=== PATIENT | female | born 1960 | race Caucasian/White ===

== ENCOUNTER 2023-08-05 07:14 | Outpatient (CLI) | payer BC, SELFPAY | END 2023-08-05 07:15 | disposition home or self-care (01) | LOC: INJ CL 07:14 | PROVIDERS: PCP Family Medicine; Visit Provider Family Medicine | DX: M54.16 Radiculopathy, lumbar region (principal); M51.36 Other intervertebral disc degeneration, lumbar region | CPT/HCPCS: 62323; J0702; Q9966 ==

== ENCOUNTER 2023-11-11 08:05 | Outpatient (CLI) | payer BC, SELFPAY ==
--- NOTE | 2023-11-11 09:17 | W.ANESCHARGE ---
Anesthesia Charges Start Date/Time Anesthesia Start Date: 11/11/23 Anesthesia Start Time: 08:46 Stop Date/Time Anesthesia Stop Date: 11/11/23 Anesthesia Stop Time: 09:11
--- NOTE | 2023-11-11 09:27 | W.ANESCHARGE ---
Anesthesia Charges Start Date/Time Anesthesia Start Date: 11/11/23 Anesthesia Start Time: 08:46 Stop Date/Time Anesthesia Stop Date: 11/11/23 Anesthesia Stop Time: 09:11
== END 2023-11-11 08:06 | disposition home or self-care (01) ==
LOC: OP CLINIC 08:05
PROVIDERS: PCP Family Medicine; Visit Provider Internal Medicine Gastroenterology
DX: Z12.11 Encounter for screening for malignant neoplasm of colon (principal); D12.2 Benign neoplasm of ascending colon; D12.5 Benign neoplasm of sigmoid colon
CPT/HCPCS: 00811; 45385; 88305; J2704

== ENCOUNTER 2024-01-31 06:55 | Outpatient (CLI) | payer BC, SELFPAY | END 2024-01-31 06:56 | disposition home or self-care (01) | LOC: INJ CL 06:56 | PROVIDERS: PCP Family Medicine; Visit Provider Family Medicine | DX: M54.16 Radiculopathy, lumbar region (principal); M51.369 Other intervertebral disc degeneration, lumbar region without mention of lumbar back pain or lower extremity pain | CPT/HCPCS: 62323; J0702; Q9966 ==

== ENCOUNTER 2024-03-29 06:22 | Day surgery (SDC) | payer BC, SELFPAY ==
[2024-03-29] VITALS (7 sets, daily range): BP systolic 137–151; BP diastolic 76–89; PULSE 78–97; RESP 18; TEMP 37.2; O2SAT 92–98; BMI 27.5
[2024-03-29] MEDS: LACTATED RINGERS 1000 ML 1,000 ML 100 ML IV (06:05)
[2024-03-29] MEDS: ACETAMINOPHEN 500 MG TABLET 1000 MG PO (06:20)
[2024-03-29] MEDS: CELECOXIB 200 MG CAPSULE PO (06:20)
[2024-03-29] MEDS: OXYCODONE (CR) 10 MG TAB.ER.12H PO (06:20)
--- OUTSIDE RECORDS SUMMARY | 2024-03-29 06:26 | XMS_ITS | Continuity of Care Document ---
Author Name NwHIN [email or web address] Address Unknown Organization Unknown Address Unknown Procedures FILTER APPLIED:Only known Procedures with Onset Date within the last 5 years Procedure Date Procedure Provider Additiona l Information Status [facility] PFT BRONCHOSPASM EVAL-LAB (14865) Completed [facility] POC HEMOGLOBIN QUANT TRANSCUTANEOUS (56794) Completed [facility] PFT C0 MEMBRANE DIFFUSE CAPACITY (17053) Complet ed [facility] PFT PLETHYSMOGRAP (49386) Completed Encounters FILTER APPLIED:Only known Encounters with Admission Date within the last 5 years Encounter Location Admission Discharge Billing Code Sole Cementer Matilde sorensen Outpatient [id number] JAYE FERREIRA Outpatient [id number] CESAR NUÑEZ
--- OUTSIDE RECORDS SUMMARY | 2024-03-29 06:27 | XMS_ITS | Clinical Summary ---
Author Organization [employer] [facility] [facility] Address [place], [place] [address] Care Team Providers [facility] Director Name Role Phone SanderchrisNoreen Irma WALLIS Primary Care Provider [phone] Allergies Active Allergy Reactions Criticality Noted Date Comments Penicillins *Unknown - Childhood Rxn 11/25/2006 childhood Medications Fish Oil-DHA-EPA (FISH OIL) 1,200-144-216 mg Cap Take by mouth once daily. 0 012 Active multivitamin (MVI) tablet Take 1 tablet by mouth once daily. 0 012 Active EPINEPHrine (EPIPEN) 0.3 mg/0.3 mL auto-injectorIndi cations:Allergic reaction, sequela Inject 0.3 mg (1 pen) intramuscular each time if needed for Allergic Reaction. 1 Each 3 022 Active fluticasone (50 mcg per actuation) nasal solution (FLONASE)Indicati ons:Rhinitis, unspecified type USE 2 SPRAYS IN EACH NOSTRIL ONCE DAILY 48 g 3 023 Active LORazepam (ATIVAN) 0.5 mg tabIndications:An xiety Take 30min prior to MRI. 1 Tablet 024 Active albuterol HFA (PRO-AIR; VENTOLIN; PROVENTIL) 90 mcg/actuation inhalerIndication s:Mild persistent asthma without complication Inhale 2 Puffs by mouth every 6 hours if needed for Shortness of Breath 1st choice or Wheezing 1st choice. 18 g 3 024 Active amLODIPine (NORVASC) 10 mg tabletIndications :HTN (hypertension) Take 1 Tablet (10 mg) by mouth once daily. 90 Tablet 3 024 Active famotidine (PEPCID) 20 mg tabletIndications :Laryngopharyngea l reflux disease Take 1 Tablet (20 mg) by mouth at bedtime. 90 Tablet 3 024 Active fluticasone propion-salmetero L (Wixela Inhub) 250-50 mcg/Dose diskus inhalerIndication s:Mild persistent asthma without complication USE 1 INHALATION ORALLY TWICE DAILY 180 Each 3 024 Active montelukast (SINGULAIR) 10 mg tabletIndications :Mild persistent asthma without complication Take 1 Tablet (10 mg) by mouth at bedtime. 90 Tablet 3 024 Active pantoprazole (PROTONIX) 40 mg delayed-release tabletIndications :Laryngopharyngea l reflux disease Take 1 Tablet (40 mg) by mouth once daily before a meal. 90 Tablet 3 024 Active estradioL (ESTRACE) 0.5 mg tabletIndications :Hormone replacement therapy (HRT) TAKE 1/2 TABLET ONCE DAILY 45 Tablet 3 024 Active sertraline (ZOLOFT) 100 mg tabletIndications :Depression, recurrent (HC) Take 2 Tablets (200 mg) by mouth once daily. 180 Tablet 3 024 Active celecoxib (CELEBREX) 200 mg capsuleIndication s:Osteoarthritis of first carpometacarpal (CMC) joint of one hand Take 1 Capsule (200 mg) by mouth two times daily with meals. 60 Capsule 2 024 Active medroxyPROGESTERo ne (PROVERA) 2.5 mg tabletIndications :Hormone replacement therapy (HRT) TAKE 1 TABLET DAILY 90 Tablet 1 024 Active ipratropium (ATROVENT NASAL) 42 mcg (0.06 %) nasal sprayIndications: Post-nasal drainage USE 2 SPRAYS IN EACH NOSTRIL ONCE DAILY. MAY INCREASE TO 3 TIMES A DAY IF NEEDED 60 mL 1 024 Active levocetirizine (XYZAL) 5 mg tab tabletIndications :Post-nasal drainage TAKE 1 TABLET ONCE DAILY INTHE EVENING 90 Tablet 2 025 Active betamethasone dipropionate 0.05 % creamIndications: Rash APPLY TO AFFECTED RASH 1 TO2 TIMES A DAY UNTIL RESOLVED. NOT FOR USE MORE THAN 2 WEEKS REGULARLY. 120 g 1 025 Active gabapentin (NEURONTIN) 100 mg capsuleIndication s:Generalized neuropathy Take three tablets in the morning and three tablets at night 540 Capsule 2 Active estradioL (Estrace) 0.5 mg tablet Take by mouth once daily. Active thiamine (VITAMIN B1) 100 mg tablet Take by mouth once daily. Active Polyethylene Glycol 1000 powd Mix 1 Packet in liquid then take by mouth once daily. Active Vttmg-6-OYU-EPA-F john Oil (Fish OiL) 1,000 (120-180) mg cap Take 1 Capsule by mouth once daily. Active folic acid 1 mg tablet Take by mouth once daily. Active fluticasone furoate (Arnuity Ellipta) 50 mcg/actuation dsdv Active betamethasone dipropionate 0.05% (DIPROSONE 0.05% CREAM) 0.05 % creamIndications: Rash APPLY TO AFFECTED RASH 1 TO2 TIMES A DAY UNTIL RESOLVED. NOT FOR USE MORE THAN 2 WEEKS REGULARLY. 120 g 022 2023 Discontinued(R eorder (E-cancel not sent)) levocetirizine (XYZAL) 5 mg tab tabletIndications :Post-nasal drainage Take 1 Tablet (5 mg) by mouth once daily in the evening. 90 Tablet 2 024 2024 Discontinued ipratropium (ATROVENT NASAL) 42 mcg (0.06 %) nasal sprayIndications: Post-nasal drainage USE 2 SPRAYS IN EACH NOSTRIL ONCE DAILY. MAY INCREASE TO 3 TIMES A DAY IF NEEDED 60 mL 1 024 2023 Discontinued gabapentin (NEURONTIN) 100 mg capsuleIndication s:Generalized neuropathy Take three tablets in the morning and three tablets at night 810 Capsule 3 024 2024 Discontinued(* Availability/F ormulary change/Cost of medication) Active Problems Problem Noted Date Diagnosed Date Alcoholic liver damage 03/22/2024 Alcohol dependence, daily use 03/22/2024 Colon polyp 11/15/2023 Overview (11/15/2023): Colonoscopy 10/2023 large SSA, repeat in 3 years Pap smear for cervical cancer screening 08/11/19 Overview (08/11/2023): 07/2023 NIL/HPV negative. Plan: Routine Screening. Peripheral sensory neuropathy 11/09/2020 Overview (11/09/2020): Has seen neurology, thought alcohol contributing to symptoms and recommend decrease alcohol. See Neurology consult 10/2020 Vitamin B12 deficiency 04/08/2015 Herniation of intervertebral disc at C6-C7 level 03/25/2015 Laryngopharyngeal reflux disease 03/25/2015 HTN (hypertension) 12/18/2014 Mild persistent asthma without complication 09/2014 Urticaria 10/04/2012 CTS (carpal tunnel syndrome) 05/04/2012 Overview (05/04/2012): Right; improved with brace Lumbar facet arthropathy 03/31/2012 Hot flashes 03/25/2011 Laryngospasm 03/25/2011 Overview (03/27/2012): Still with intermittent problems. Allergic rhinitis, cause unspecified 03/02/2007 Resolved Problems Problem Noted Date Diagnosed Date Resolved Date Annual physical exam 07/27/2023 025 Routine general medical exam ination at a health care facility 01/17/2013 03/22/2024 Overview (01/17/2013): S/P colonoscopy at [place] 01/05/2013 colitis per patient. Tennis elbow 03/25/2011 03/30/2013 Lumbar radicular pain 08/07/20102012 Painful Lumbar Facet Arthropathy 06/22/2010 03/27/2012 Degeneration of lumbar or trey mbosacral intervertebral disc 12/26/2009 03/27/2012 Allergic reaction 12/18/2009 03/30/2013 Encounters Date Type Department Care Team Description 03/22/2024 7:30 AM ART CONSULTANT Office Visit [facility] [address] [place] [address] Vivek Hernandez MD Preoperative Exam ( surgery/[facility]/Dr. Miranda) 03/22/2024 Travel 03/21/[address] [address] Noreen Thomas DO Refill Request (gabapentin) 03/15/[address] [address] Noreen Thomas DO Refill Request (Betamethasone Dipropionate Augmented 0.05% aug oin ) 03/12/[address] [address] Noreen Thomas DO Refill Request (Levocetirizine) 03/07/[address] [address] Noreen Thomas DO Refill Request (Ipratropium) 02/14/[address] [address] Noreen Thomas DO Error-please disregard (error) 02/03/[address] [address] Salvatore Méndez MD Appointment Request (2 WEEK FOLLOW-UP) 02/03/[address] [address] Noreen Thomas DO Refill Request (gabapentin (NEURONTIN) 100 mg capsule) 01/31/2024 8:00 AM ART CONSULTANT Office Visit [facility] [address] [place] [address] Salvatore Méndez MD Procedure (L5-S1 ILESI) 01/30/2024 7:55 AM ART CONSULTANT Office Visit [address] [address] Noreen Thomas DO Occ Med 01/30/[address] [place] [address] Noreen Thomas DO Consult 01/30/2024 Travel 01/23/2024 Orders Only [facility] Scanner 1 scan: (1-Ord) [facility], XR LUMBAR SPINE, 01/23/2024 12/30/2023 Refill [facility] [address] [place] [address] Noreen Thomas DO Refill Request (Medroxyprogesterone) from Last 3 Months Immunizations Name Administration Dates Next Due COVID-19 vaccine (Moderna 100mcg/0.5mL) PF, MDV 06/26/2020,05/29/2020 COVID-19 vaccine (Pfizer-Bio NTech 30mcg/0.3mL) 12YO+ ANDERSON-SUCROSE PF, MDV 07/15/2021 Influenza A (H1N1), Inactiva piper (Age >=3 Years) 03/03/2009 Influenza Virus, Unspecified 11/30/2017,11/27/19 15 Influenza, IIV3 (Age >=3 years) 12/26/19 14,12/11/2012,12/26/2011,2010,03/12/2010 Influenza, IIV4 12/14/2019, 9,11/12/2016,2015 Influenza, Injectable, Mdck, Quadrivalent, W/preservative 12/28/2022,12/23/2021,12/24/2020 Pneumococcal Conj 20-valent (Prevnar 20) 02/18/2022 Td (Age >=7 Years) 07/15/2021,01/23/2004 Tdap 12/13/2023,03/25/2011 Zoster (Shingrix-RZV, recombinant) 09/21/2019, Family History Medical History Relation Name Comments Allergies Brother Chaitanya Hayfever Cancer Father Graeme oral Diabetes Father Graeme Allergies Mother Pat Asthma Mother Pat Osteoporosis Mother Pat Anesthesia Problem No Family History Blood Disease No Family History Cancer-breast No Family History Relation Name Status Comments Brother Chaitanya Alive Father Graeme Alive Mother Pat Alive Social History Tobacco Use Types Packs/Day Years Used Date Smoking Tobacco: Former Cigarettes 1.5 20 0 12/08/1983 - 12/08/2003 Smokeless Tobacco: Never Tobacco Cessation:Counseling Given: Not Answered Alcohol Use Standard Drinks/Week Comments Yes 21 (1 standard drink = 0.6 oz pu re alcohol) PHQ-2 Answer Date Recorded PHQ-2 TOTAL SCORE 4 07/27/2023 Social Connections Answer Date Recorded Do you often feel lonely or isolated from those around you? 0 04/26/2023 Alcohol Use Answer Date Recorded How often do you have a drink containing alcohol ? 4 07/27/2023 How many drinks containing a lcohol do you have on a typical day when you are drinking? 1 07/27/2023 How often do you have five or more drinks on one occasion? 4 07/27/2023 Financial Resource Strain Answer Date R ecorded Difficulty of Paying Living Expenses 3 04/26/2023 Difficulty of Paying Living Expenses Not on file 04/26/2023 Food Insecurity Answer Date Recorded Do you worry your food will run out before you are able to buy more? 1 04/26/2023 Transportation Needs Answer Date Record ed Does lack of transportation keep you from medica l appointments? 1 04/26/2023 Does lack of transportation keep you from work, meetings or getting things that you need? 1 04/26/2023 Housing Stability Answer Date Recorded What is your housing situation today? 1 04/26/2023 Utilities Answer Date Recorded Do you have trouble paying f or utilities (for example, heat, electricity, water, phone)? 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 Not on file Not on file Not on file Not on file Not on file Not on file Not on file Obstetrics History Para Term AB IAB SAB Ectopic Multiple Livin g Live Births 2 2 2 0 Date Outcome GA Total Labor Labor/2nd/3rd Weight Sex Type Anes PTL Margareth A1 A5 Name Clin SAB SAB Last Filed Vital Signs Vital Sign Reading Time Taken Comments Blood Pressure 138/80 03/22/2024 7:49 AM ART CONSULTANT Pulse 96 03/22/2024 7:34 AM ART CONSULTANT Temperature 37.3 C (99.1 F) 12/09/2023 10:00 AM CDT Respiratory Rate 18 09/13/2023 8:29 AM CDT Oxygen Saturation 97% 03/22/2024 7:34 AM ART CONSULTANT Inhaled Oxygen Concentration - - Weight 66.7 kg (147 lb 1 oz) 03/22/2024 7:34 AM ART CONSULTANT Height 156.6 cm (5' 1.65) 03/22/2024 7:34 AM CS T Body Mass Index 27.2 03/22/2024 7:34 AM ART CONSULTANT Plan of Treatment Health Maintenance Due Date Last Done Comments Low Dose CT (for lung CA) ag e 50-80 2012 RSV vaccine for adults or (1 - Risk 60-74 years 1-dose series) 2022 COVID-19 vaccine series (2023- season) 2023 07/15/2021, 06/26/2020, 05/29/2020 Influenza for age 50-64 11/13/2023 12/29/19 23, 12/23/2021, 12/24/2020, Additional history exists Mammogram for age 45-75 07/26/2024 07/27/19 24, 07/19/2022, 07/15/2021, Additional history exists Depression screening for age 12+ 07/28/2024 07/29/2023, 07/27/2023, 07/27/2023, Additional history exists BMI (ht and wt on same day) for age 18+ 03/22/2025 03/22/2024, 10/19/2023, 07/27/2023, Additional history exists Pap test for age 21-65 07/26/2026 , 07/27/2023, 04/18/2018, Additional history exists Colonoscopy through age 75 11/10/202611/10, 11/11/2023, 01/05/2013 (Completed outside of [facility]) Lipids for age 45-75 07/26/2028 07/27/2023, 07/19/2022, 07/15/2021, Additional history exists Tetanus booster 12/12/2033 12/13/2023, 05/0 06/2021, 03/25/2011, Additional history exists Zoster (shingles) series for age 50+ Completed 09/21/2019, 03/01/2019 Hepatitis C screening for ag e 18-79 Completed 08/07/2021, 11/28/2020, 04/20/2019 Pneumococcal series for age 50+ Completed 2 HIV for age 15-65 Completed 07/19/2022 Tdap Completed 12/13/2023, 03/25/2011 Procedures Procedure Name Priority Date/Time Associated Diagnosis Comments AMB EPIDURAL STEROID INJECTION Routine 01/31/2024 12:00 AM ART CONSULTANT Lumbar radiculopathy Spinal stenosis of lumbar region with neurogenic claudication Lumbar facet arthropathy SCAN-RADIOLOGY REPORT 01/23/2024 12:00 AM ART CONSULTANT COLONOSCOPY SCREENING Routine 11/11/2023 12:00 AM CDT Screening for colon cancer LIPID PANEL W REFLEX MEASURED LDL Routine 07/27/2023 9:32 AM CDT HTN (hypertension) HPV HIGH RISK Routine 07/27/2023 8:57 AM CDT Cervical cancer screening XR MAMMO BILAT SCREENING Routine 07/27/2023 7:08 AM CDT Visit for screening mammogram LC HIV-1/O/2, 4TH GENERATION Routine 07/19/2022 8:56 AM CDT Screening for HIV (human immunodeficiency virus) ANTI HCV Routine 08/07/2021 7:47 AM CDT Elevated liver enzymes from Last 3 Months or Most Recently Relevant to Health Maintenance Results * AMB EPIDURAL STEROID INJECTION (01/31/2024 12:00 AM ART CONSULTANT) us Salvatore Méndez MD NEUROLOGY ORD Final Resu lt * SCAN-RADIOLOGY REPORT (01/23/2024 12:00 AM ART CONSULTANT) Anatomical Region Laterality Modality Other us Scanner OTHER Final Result * COLONOSCOPY SCREENING [[id number]] (11/11/2023 12:00 AM CDT) Noreen Thomas DO GI PROCEDURE ORD Final Res ult * (ABNORMAL) LIPID PANEL W REFLEX MEASURED LDL (07/27/2023 9:32 AM CDT) CHOLESTEROL,TOTAL 143 100 - 199 mg/dL 07/27/2023 6:47 PM CDT [facility] Comment: Cholesterol, Total Reference Ranges Desirable <200 mg/dL Borderline 200-239 mg/dL High >=240 mg/dL TRIGLYCERIDES 231(H) <150 mg/dL 07/27/2023 6:47 PM CDT [facility] HDL CHOLESTEROL 51 >40 mg/dL 6:47 PM CDT [facility] NON-HDL CHOLESTEROL 92 <145 mg/dl 07/27/2023 6:47 PM CDT [facility] CHOL/HDL RATIO 2.80 <4.50 07/27/2023 6:47 PM CDT [facility] LDL CHOLESTEROL 46 <=130 mg/dL 07/27/2023 6:47 PM CDT [facility] VLDL CHOLESTEROL 46(H) <=30 mg/dL 07/27/2023 6:47 PM CDT [facility] PROVIDER ORDERED STATUS RANDOM 07/27/2023 6:47 PM CDT [facility] Blood BLOOD SPECIMEN / Unknown Venipuncture / Unknown 07/27/2023 9:32 AM CDT 07/27/2023 9:34 AM CDT Noreen Thomas DO CHEMISTRY Final Resu lt [facility] [address] [place] [address], * HPV HIGH RISK (07/27/2023 8:57 AM CDT) TYPE 16 Negative Negative 07/29/2023 11:45 AM CDT [facility] TYPE 18 Negative Negative 07/29/2023 11:45 AM CDT [facility] OTHER HIGH RISK TYPES Negative Negative 07/29/2023 11:45 AM CDT [facility] Other (Cervical) Non-Blood / Unknown 07/27/2023 8:57 AM CDT 07/27/2023 4:40 PM CDT Narrative [facility] - 07/29/2023 11:45 AM CDT HPV types 16, 18, 31, 33, 35, 39, 45, 51, 52, 56, 58, 59, 66 and 68 DNA were undetectable or below the pre-set threshold. Methodology: [employer] 4800 HPV Test us Noreen Thomas DO MICROBIOLOGY Final Resu lt [facility] [address] [place] [address], [place] * XR MAMMO BILAT SCREENING (07/27/2023 7:08 AM CDT) Anatomical Region Laterality Modality BREASTS, Breast Left, Breast Right Bilateral Mammography Impressions 07/27/2023 2:31 PM CDT There is no radiographic evidence for malignancy. Recommend annual mammograms. MAMMOGRAM ASSESSMENT: ACR 1 Negative PATIENTS: You will also receive a letter with your examination results in an easy to read format. If you have questions about your results, please contact your referring provider. Narrative 07/27/2023 2:31 PM CDT For Patients: As a result of the 21st Century Cures Act, medical imaging exams and procedure reports are released immediately into your electronic medical record. You may view this report before your referring provider. If you have questions, please contact your health care provider. XR MAMMO BILAT SCREENING [[id number]] CLINICAL HISTORY: This is an asymptomatic 63 y.o. patient. INDICATION FOR EXAM: Mammogram Screening. TECHNIQUE: CC & MLO views were obtained. This study was evaluated with the assistance of Computer-Aided Detection. COMPARISON FILM: Yes 07/19/22 [employer] [facility] 07/15/21 [facility] FINDINGS: The breasts have scattered areas of fibroglandular density. There are no dominant masses, suspicious micro calcifications or areas of architectural distortion. Noreen Thomas DO MAMMO Final Resu lt * LC HIV-1/O/2, 4TH GENERATION (07/19/2022 8:56 AM CDT) HIV Scr 4th Gen Non Reactive Non Reactive 07/21/2022 10:06 PM CDT [facility]) Comment: HIV Negative HIV-1/HIV-2 antibodies and HIV-1 p24 antigen were NOT detected. There is no laboratory evidence of HIV infection. Blood BLOOD SPECIMEN / Unknown Venipuncture / Unknown 07/19/2022 8:56 AM CDT 07/19/2022 8:57 AM CDT Narrative [facility] ([facility]) - 07/21/2022 10:06 PM CDT Performed at: [address] [place] [id number] Orthopedic Shoe Fitter: Florencio Phillips MD, Phone: [phone] [facility] DO LABORATORY Final Resu lt [facility] ([facility]) [address] [place] [id number], * ANTI HCV (08/07/2021 7:47 AM CDT) Pathologist [facility] HEPATITIS C ANTIBODY Non-React torres Non-React torres 08/07/2021 4:17 PM CDT [facility] Comment:Antibodies to HCV no t detected; does not exclude the possibility of exposure to HCV. Blood BLOOD SPECIMEN / Unknown Venipuncture / Unknown 08/07/2021 7:47 AM CDT 08/07/2021 7:47 AM CDT Noreen Thomas DO SEND OUTS Final Resu lt [facility] [address] [place] [address], [place] from Last 3 Months or Most Recently Relevant to Health Maintenance Insurance [employer] Care Teams Craft Center Director Relationship Specialty Start Date End Date Noreen [place] [address] [place] [address] PCP - General Family Practice 06/04/20
[2024-03-29] MEDS: SODIUM CHLORIDE 0.9 % (FLUSH) 10 ML SYRINGE IVF (07:16)
[2024-03-29] MEDS: fentaNYL 100 MCG/2 ML inj IVP (07:55)
[2024-03-29] MEDS: MIDAZOLAM HCL 1 MG/ML inj IVP (07:55)
--- NOTE | 2024-03-29 07:58 | SUR.PREOP ---
TIME?OUT:?0751 PT/RN/ROBB?VERIFICATION?OF?SURGICAL?SITE,?PROCEDURE,?AND?CONSENT OBTAINED?PRIOR?TO?INVASIVE?PROCEDURE.pt ghanshyam rn mary anne holm mda consent left hand
[2024-03-29] MEDS: CEFAZOLIN 2 GM INJ IVP (08:19)
--- NOTE | 2024-03-29 09:30 | P.NB_ITS ---
Nerve Block Nerve Block Time Seen by Provider: 07:55 Date Seen: 03/29/24 Type of block requested by surgeon for post-operative analgesia: axillary Side: left Time out performed: Yes Verification of patient name: Yes Verification of date of : Yes Site marking: site marked Name of person performing procedure: Ganga Continuous monitoring Was continuous monitoring of O2 sat, B/P, co founder and cto, recorded every 15 minutes?: Yes Procedure Checklist: sterile prep, needles and gloves Ultrasound guided. Images saved: Yes Medications given in 5ml increments after negative aspiration: Ropivicaine %: 0.5 mL: 15 Needle gauge: 22 and Lidocaine %: 2 mL: 1 Patient tolerated procedure well: Yes Additional comments: Needle noted adjacent to nerve Block Charges Block Charge (with Pro Fee): Brachial Plexus Use of Ultrasound Machine for Block: Yes- US Guidance/pain block
--- NOTE | 2024-03-29 09:31 | P.ANES_ITS ---
Anesthesia Charges Start Date/Time Anesthesia Start Date: 03/29/24 Anesthesia Start Time: 08:09 Stop Date/Time Anesthesia Stop Date: 03/29/24 Anesthesia Stop Time: 10:20 Coding CPT Codes CPT Codes: ANESTH LOWER ARM SURGERY - 77678 ([id number]) QK - MUD CAR WORKER 2-4 CNCRNT ANES PROC, QX - METHODS ANALYST SVC W/ MD MED DIRECTION, P2 - PATIENT W/MILD SYST DISEASE
--- NOTE | 2024-03-29 09:31 | W.ANESCHARGE ---
Anesthesia Charges Start Date/Time Anesthesia Start Date: 03/29/24 Anesthesia Start Time: 08:09 Stop Date/Time Anesthesia Stop Date: 03/29/24 Anesthesia Stop Time: 10:20 Coding CPT Codes CPT Codes: ANESTH LOWER ARM SURGERY - 46196 ([id number]) QK - DIRECTOR OF NUCLEAR MEDICINE 2-4 CNCRNT ANES PROC, QX - GRADE TEACHER SVC W/ MD MED DIRECTION, P2 - PATIENT W/MILD SYST DISEASE
--- NOTE | 2024-03-29 09:52 | PM.ORPRC ---
Procedure Note Date of procedure: 03/29/24 Procedure: PREOPERATIVE DIAGNOSIS: Left thumb CMC joint osteoarthritis POSTOPERATIVE DIAGNOSIS: Left thumb CMC joint osteoarthritis NAME OF OPERATION: Left thumb CMC arthroplasty (LRTI), EPB transfer SURGEON: Inderjit Wheatley MD TERMINOLOGIST: Jenny Perez PA-C ANESTHESIA: Axillary block plus monitored anesthesia care ESTIMATED BLOOD LOSS: 0 mL COMPLICATIONS: None SPECIMENS: None DRAINS: None PREOPERATIVE ANTIBIOTICS: Ancef 2 grams INDICATIONS: The patient is a 63-year-old with a history of left thumb CMC joint osteoarthritis. Despite appropriate nonoperative management, including activity modification, antiinflammatories, [id number] pain medication, bracing, occupational therapy, and injections they continue to have pain and disability. Operative intervention was offered. The risks, benefits and expected outcomes were discussed in detail. These included but were not limited to: Infection, bleeding, injury to blood vessel or nerve, venous thromboembolism. All questions were answered to their satisfaction. Use of an university administrative assistant was necessary for patient positioning, soft tissue retraction, wound closure and dressing and splint application. PROCEDURE: An axillary block was placed by anesthesia. The patient was placed supine on the operating room table. IV sedation was administered. The left upper extremity was prepped and draped in the usual sterile fashion. The limb was exsanguinated with the Kvng bandage. The pneumatic tourniquet was inflated to 250 mmHg. A longitudinal incision was made just dorsal to the 1st dorsal compartment at the base of the thumb. Subcutaneous dissection was taken with tenotomy scissors. Several small crossing veins were cauterized and divided. The base of the thumb metacarpal was exposed. The CMC joint capsule was incised longitudinally. Subperiosteal dissection of the trapezium was carried both dorsally and volarly. Likewise, the base of the thumb metacarpal was subperiosteally exposed. The radial sensory nerve was encountered and was carefully protected throughout the case. The trapezium was dissected free with the 15 blade and the [place] elevator. It was removed piecemeal. Attention was then turned to the FCR graft harvest. A transverse incision was made at the musculotendinous junction of the FCR in the volar forearm. Subcutaneous dissection was taken with tenotomy scissors to the tendon. The tendon was freed up from the muscle fibers and was divided transversely. We then pulled the tendon graft into the distal incision at the base of the thumb. We placed a 2-0 FiberWire suture in the deep capsule. A 2.8 mm socket was drilled on the radial side of the base of the index finger metacarpal. A loop of labral tape was placed in the socket and secured with a 3 mm x 8 mm BioComposite anchor. A guide pin was drilled through the dorsum of the base of the thumb metacarpal exiting at the volar peak of the base of thumb metacarpal. A 5 mm tunnel was drilled. The tendon passer was placed through the tunnel. We pulled the tendon graft and both limbs of the labral tape into the tunnel. We maximally tensioned the graft and then placed a 4.75 x 15 mm Arthrex BioComposite tenodesis screw just distal to the graft. The graft was then pulled proximally and was secured to the dorsal bone of the base of the metacarpal with 2-0 FiberWire suture x2. We then used our previously placed 2-0 FiberWire suture in the deep capsule and folded the graft back and forth over these sutures. The graft was placed in the depth of the wound and this FiberWire suture was tied over the top to secure it in position. Given the amount of hyperextension through the thumb MP joint we elected to transfer the extensor pollicis brevis tendon. It was therefore freed up and was divided just proximal to the MP joint. It was then secured to the periosteum of the thumb metacarpal, proximal to the MP joint with a 2-0 FiberWire. The wound was irrigated with normal saline. The capsule was closed with a 3-0 Vicryl in an interrupted [id number] fashion. Wounds were closed with 3-0 Vicryl and a 4-0 Monocryl. Glue was used to seal the skin. A dry dressing and short-arm thumb spica splint were applied, the tourniquet was released. Sponge and needle counts were correct x 2. The patient tolerated the procedure well. There were no apparent complications. They were carefully transferred to the hospital bed and taken to the postanesthesia care unit in satisfactory condition. PLAN: The patient will be discharged to home. They will work on ice and elevation of the hand. They will follow up in the office next week for wound check and three views of the thumb, out of the splint prior to being seen.
--- NOTE | 2024-03-29 10:21 | P.ANES_ITS ---
Anesthesia Charges Start Date/Time Anesthesia Start Date: 03/29/24 Anesthesia Start Time: 08:09 Stop Date/Time Anesthesia Stop Date: 03/29/24 Anesthesia Stop Time: 10:20 Coding CPT Codes CPT Codes: ANESTH LOWER ARM SURGERY - 39487 ([id number]) P3 - PATIENT W/SEVERE SYS DISEASE, QK - LAP POLISHER 2-4 CNCRNT ANES PROC, QX - BRAIN WAVE TECHNICIAN SVC W/ MD MED DIRECTION
--- NOTE | 2024-03-29 10:21 | W.ANESCHARGE ---
Anesthesia Charges Start Date/Time Anesthesia Start Date: 03/29/24 Anesthesia Start Time: 08:09 Stop Date/Time Anesthesia Stop Date: 03/29/24 Anesthesia Stop Time: 10:20 Coding CPT Codes CPT Codes: ANESTH LOWER ARM SURGERY - 30250 ([id number]) P3 - PATIENT W/SEVERE SYS DISEASE, QK - PLATE FITTER 2-4 CNCRNT ANES PROC, QX - CLIENT SERVICES ACCOUNT MANAGER SVC W/ MD MED DIRECTION
--- NOTE | 2024-03-29 11:27 | SUR.PHASEII ---
Patient tolerated ice water; she did not care for anything else to eat or drink. Patient verbalized readiness to be discharged and understanding of discharge instructions. Patient voided prior to discharge.
== END 2024-03-29 11:15 | disposition home or self-care (01) ==
LOC: OR 06:25
PROVIDERS: PCP Family Medicine; Visit Provider Orthopaedic Surgery
PROC: (CPT 25447; principal; 2024-03-29 07:45)
DX: M18.12 Unilateral primary osteoarthritis of first carpometacarpal joint, left hand (principal); G89.18 Other acute postprocedural pain
CPT/HCPCS: 25447; 26480; 01830; 64415; 76942; A9270; C1713; J0690; J1100; J2250; J2405; J2704; J2795; J3010; J7120

== ENCOUNTER 2024-07-30 11:00 | Outpatient (RCR) | payer BC, SELFPAY ==
--- NOTE | 2024-04-09 18:08 | OT.OPOE ---
OT Outpatient Ortho Eval OT Outpatient Ortho Eval* Start: 04/09/24 12:35 Freq: Status: Active Protocol: Document 04/09/24 14:35 LCN (Rec: 04/09/24 18:04 LCN [id number]) E-signed By Brooke Soto, OTR/L, CLT OT OP Ortho Eval Details Complexity Complexity Low Insurance Information Insurance Information Comments [facility] History/Precautions Current Condition/Medical Diagnosis Referring Provider Dr. Wheatley attending, PCP is Noreen Thomas Medical Diagnoses s/p L thumb arthroplasty LRTI 03/29/24. 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 Hernaited disc of c6-7. Trial of 2 cortisone injections in L CMC early, late fall of 2023, not helpful . penicillin allergy. Medical/Functional History Prior Level of Function/Mobility Pt lives alone on [address] [place] near [place], neighbor does snow [employer] and she does the yard with her large rider. Has 2 dogs ( lab, pitbull) indoor and outdoor cats. 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 Is going through a divorce and is trying to down size her belongs in her home of 30 yrs. 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 Ortho Subjective Subjective Subjective Yesi Whitney is an active, hardworking 63 y/o female who underwent a L CMC arthroplasty /CLTI ( with removal of trapezium and harvest of EPB tendon) on 03/29/24 and is having pain/pressure and edema since then. Still using oxycodone 5 mg tablets 3x/day between ibuprofen and tylenol. rates pn 6/10 as we start today, waiting for her next dose. Was issued thumb spica brace in Ortho 04/05/24 and has only been wearing it at night . Edema is distended light pink and neutrally warm, painful to shaina a compression glove. Pain Assessment Pain Pain Yes Pain Comments 5/10 steady pain in L thub and wrist, fingers feel heavy Range of Motion and Strength Wrist Range of Motion and Strength Wrist Range of Motion and Strength WR EX to 60 of 70 and WF to 55 of 80. Supination and pronation WNL EDEMA-- Distended skin, pitting edema pink flushed with neutral healing warmth, no red streaking. Wrist crease is 16.8 cm L and 16.2 R. TH p1 is 6.7 cm L and 6.3 R. Hand/Finger/Thumb Range of Motion and Strength Hand/Finger/Thumb Range of Motion and Pt makes 80% of full fist. Strength AAROM composite digit flexion L IF/MF/RF/SF is 2.2 / 2.0 / 1.8 / .7 cm ( where .5-1 cm is WNL) Hand Pinch/Lan Analyst Strength Hand Pinch/Lan Analyst Strength Hand Pinch/Lan Analyst Strength Left Hand,Right Hand Left Hand Lan Analyst Strength Position 1 in Elbow 0 Flexion (lbs) Right Hand Lan Analyst Strength Position 1 in Elbow 58 Flexion (lbs) Lateral Pinch Strength (lbs) 15 Three Point Pinch (lbs) 14 OT Problems Problems Problems Decreased Strength,Decreased Range of Motion,Pain,Sensory Sensitivity,Lifting,Gripping, Pinching Other Problems Opening Containers,Dressing, Fasteners Patient Potential Excellent Assessment Assessment Assessment Pt healing from L CMC arthroplasty LRTI on 03/29/24. Given Yesi's?difficulty with edema, pain, ROM and strength loss of L hand/thumb/wrist limiting daily tasks, and she would benefit from skilled OT to address these areas. Occupational Therapy Treatment Plan - OP Potential Rehabilitation Potential Excellent Set Goals Goals Set with Patient Yes Goals Goals In 12 weeks, Yesi will demonstrate:? 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 2) I HEP for stretching, gradual strengthening and self mgmt strategies. 3) improved L director of analytical development strength to 40# and pinch to 12# with L thumb pain < 1/10. 4)??Pt to be fit with functional bracing (for CMC, wrist, may need 1-3 versions o support her activity levels and need for support during heavy equipment use) and use adaptive strategies to protect joint integrity to support less pain with ADL. Treatment Plan Treatment Plan Evaluation,Edema Control,Joint Mobilization,Manual Therapy, Ultrasound,Therapeutic Exercise,Self Care/Home Management,Education Expected Frequency 1-2x Week Expected Duration 8-10 Weeks Home Program Home Program Home Program Initiated Home Program Specifics Wr EX and FL stretches, tendon gliding, self massage of edema, elevation and compression glove use. Certification Certification Statement I Certify That: Therapy Services Provided, Therapy Plan Established, Therapy Plan Reviewed Certification Information Clinic ID # [id number] Initial Certification Date 04/09/24 Recertification Due Date 07/08/24 Provider Signature Required Communication Only-No Signature Required
--- NOTE | 2024-06-04 16:32 | OT.OPODN ---
OT Outpatient Ortho Daily Note OT Outpatient Ortho Daily Note* Start: 04/09/24 12:35 Freq: Status: Active Protocol: Document 06/04/24 12:14 LCN (Rec: 06/04/24 16:30 LCN [id number]) E-signed By Brooke Soto, OTR/L, CLT Type of Note Type of Note Type of Note Daily Note,Note to MD,Recert/ Progress Note Visit Number 10 Comments 25 VISIT LIMIT. Insurance Information Insurance Information Comments [facility] History/Precautions Current Condition/Medical Diagnosis Referring Provider Dr. Wheatley attending, PCP is Noreen Thomas Medical Diagnoses s/p L thumb arthroplasty LRTI 03/29/24. 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 Hernaited disc of c6-7. Trial of 2 cortisone injections in L CMC early, late fall of 2023, not helpful . penicillin allergy. Medical/Functional History Prior Level of Function/Mobility Pt lives alone on [address] near [place], neighbor does snow [employer] and she does the yard with her large rider. Has 2 dogs ( lab, pitbull) indoor and outdoor cats. 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 Is going through a divorce and is trying to down size her belongs in her home of 30 yrs. 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 Ortho Subjective Subjective Subjective Pt worked a set of 3 days, went well with newer velcro CMC/MP thermoform brace on. Pt was up to 5-6/10 yesterday, managed with icing, compression,elevation. Back down to 2-3/10 pn today at base of MP (nodule in this area) and CMC base indurated thickness at medial CMC to MT margin. Bracing still on for heavy work tasks, starting to remove for light home chores and sleep. Pain Assessment Pain Pain Yes Pain Comments 2/10 steady pain in L thumb and wrist, fingers feel heavy OT OP Daily Ortho Note/Assessment Therapeutic Exercise Therapeutic Exercise Minutes (minutes) 5 Therapeutic Exercise Comments Reviewed HEP for concentric PRE with 1# can for WR FL, WR EX and hammer turns (held midshaft of 16 oz mallet) for RD/UD and supination pronation planes,?adding visual edits and cues for slow lowering, isolating wrist only;?well tolerated x can only do 3-5 reps per set, needs breaks, tires quickly.??Can use Voltaren gel to manage pn. Therapeutic Activity Therapeutic Activity Comments 06/04/24-- Get elbow counterpressure brace to mnage R lat epicondyle pn during work. (Is using R hand more post-operatively). 05/11/24--Positioning-- OTR fits pt w OTS CMC to IP velcro stabilizer with thermoform insert/size Med left. Fits well. Manual Therapy Manual Therapy Minutes (minutes) 25 Manual Therapy Comments OTR applies gentle LLPS in WR EX, WR FL and supination planes, MP IP, flexion, radial deviation, gentle vera incision massage, gentle pin and stretch over the raised forearm incision during gentle shuttle fixer ad EX. Scar mobilization techniques with dycem applied using small circular motions. and skin rolling/pinch and gentle twisting technique. Issued dycem for use w home technique. Ultrasound Ultrasound Minutes (minutes) 10 Ultrasound Location & Joint Position L CMC base Ultrasound Frequency & Mode 3 MHz Continuous Intensity (w/cm2) 1.5 Ultrasound Comments as needed to support reduction of edema for tissue healing, improved circulation and tissue mobility. Splinting Splinting Comments 06/04/24-- Pt to continue bracing for the next week, as her wrist strength is still needing more improvement. 05/01/24--Flared, rolled back dorsal MCP margin. 04/25/24--Pt was provided with a custom fabricated thumb spica orthosis for protected healing of her LUE CMC arthroplasty. Pt was provided with training and practice in donning and doffing orthosis as well as a compression glove to wear underneath. Pt was instructed to wear splint at all times when active, off for shower and HEP, can remove if she is resting but should wear to bed at night. Total Occupational Therapy Time Occupational Therapy Minutes 40 Home Program Home Program Home Program Revised,Compliant Home Program Specifics 05/30/24-- WR planes with 1# WR EX/FL, Hammer turns and R/UD mid shaft. 05/11/24-- Hand based splint for at work, CMC thermoform. Putty/soft with gentle 30% pressure with shuttle fixer/gomez and 2pt pinch. 05/08/24-- WR EX, FL stretches. Wall push ups. 05/04/24-- gentle 30% pressure with fingers only gripping on soft putty in sup/pron/neutral positions. 05/01/24--scar massage, scar gel, contrast baths and table slides. 04/11/24 Provided review of initial exs that were provided at first session, provided additional training and practice in HEP for elevated, non-resisted muscle pumps for edema reduction, finger / thumb ext with abd/add, opposition, IP flex/ext, and radial abd/add. Following demo , pt is able to complete all exs with minimal vc and encouragement. Pt was provided with written instructions for use at home. She was instructed to keep all movements gentle and non- painful. Also initiated light scar tissue mobilization. IE: Wr EX and FL stretches, tendon gliding, self massage of edema, elevation and compression glove use. Range of Motion and Strength Wrist Range of Motion and Strength Wrist Range of Motion and Strength WR EX to 60 of 70 and WF to 55 of 80. Supination and pronation WNL EDEMA-- Distended skin, pitting edema pink flushed with neutral healing warmth, no red streaking. Wrist crease is 16.8 cm L and 16.2 R. TH p1 is 6.7 cm L and 6.3 R. Hand/Finger/Thumb Range of Motion and Strength Hand/Finger/Thumb Range of Motion and Pt makes 80% of full fist. Strength AAROM composite digit flexion L IF/MF/RF/SF is 2.2 / 2.0 / 1.8 / .7 cm ( where .5-1 cm is WNL) Goniometric Comments Goniometric Comments Goniometric Comments 05/01/24-- pt nearly makes rolled fist. Hand Pinch/Program Director Air Talent Strength Hand Pinch/Program Director Air Talent Strength Hand Pinch/Program Director Air Talent Strength Left Hand,Right Hand Left Hand Program Director Air Talent Strength Position 1 in Elbow 0 Flexion (lbs) Right Hand Program Director Air Talent Strength Position 1 in Elbow 58 Flexion (lbs) Lateral Pinch Strength (lbs) 15 Three Point Pinch (lbs) 14 Comments Comments 06/04/24-- Pt's shuttle fixer improved to 40 B ( R lat epicondyle , new tenderness, has had cortisone in the past x 2 episodes). Gomez pinch is 9# L (15# R)and 3 pt is 10.5# L ( 14# R). MMT 4-/5 WR EX, FL, RD , 5 UD. 05/08/24- WE to 60 of 70, WR FL to 75 of 80, RD to 10 of 20 . UD 45. 05/04/24-- L Program Director Air Talent 8#, 2# gomez pinch; 2/10 tender for teaching purposes only. OT Problems Problems Problems Decreased Strength,Decreased Range of Motion,Pain,Sensory Sensitivity,Lifting,Gripping, Pinching Other Problems Opening Containers,Dressing, Fasteners Patient Potential Excellent Assessment Assessment Assessment Pt less achy after therapy, 1 /10 after work shifts with brace on. Pt has more time where she has no pain. Improving with more L hand use , doing well with self- metering. Occupational Therapy Treatment Plan - OP Potential Rehabilitation Potential Excellent Set Goals Goals Set with Patient Yes Goals Goals In 12 weeks, Yesi will demonstrate:? 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 2) I HEP for stretching, gradual strengthening and self mgmt strategies. 3) improved L shuttle fixer strength to 40# and pinch to 12# with L thumb pain < 1/10. 06/04/24-- PROGRESS-- Pt's shuttle fixer improved to 40 B ( R lat epicondyle , new tenderness, has had cortisone in the past x 2 episodes). Gomez pinch is 9# L (15# R)and 3 pt is 10.5# L ( 14# R). MMT 4-/5 WR EX, FL, RD , 5/ UD. 4)??Pt to be fit with functional bracing (for CMC, wrist, may need 1-3 versions o support her activity levels and need for support during heavy equipment use) and use adaptive strategies to protect joint integrity to support less pain with ADL. 06/04/24-- Using a velcro thermoform CMC to MP hand based support while at work. Off for home tasks, can sleep without it if she doesn't clench hands while sleeping. Treatment Plan Treatment Plan Evaluation,Edema Control,Joint Mobilization,Manual Therapy, Ultrasound,Therapeutic Exercise,Self Care/Home Management,Education Expected Frequency 1-2x Week Expected Duration 8-10 Weeks Occupational Therapy Billing Units Treatment Minutes Timed Treatment Minutes 40 Total Treatment Minutes 40 Billing Units Manual Therapy 2 Ultrasound 1 Ortho Billing Units Wrist/Hand/Finger Orthosis 0 Certification Statement Certification Statement I Certify That: Therapy Services Provided, Therapy Plan Established, Therapy Plan Reviewed
--- NOTE | 2024-07-30 18:13 | OT.OPODN ---
OT Outpatient Ortho Daily Note OT Outpatient Ortho Daily Note* Start: 04/09/24 12:35 Freq: Status: Active Protocol: Document 07/30/24 18:03 LCN (Rec: 07/30/24 18:13 LCN [id number]) E-signed By Brooke Soto, OTR/L, CLT Type of Note Type of Note Type of Note Daily Note,Discharge Note,Note to MD Visit Number 12 Comments 25 VISIT LIMIT. Insurance Information Insurance Information Comments [facility] History/Precautions Current Condition/Medical Diagnosis Referring Provider Dr. Wheatley attending, PCP is Noreen Thomas Medical Diagnoses s/p L thumb arthroplasty LRTI 03/29/24. 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 Hernaited disc of c6-7. Trial of 2 cortisone injections in L CMC early, late fall of 2023, not helpful . penicillin allergy. Medical/Functional History Prior Level of Function/Mobility Pt lives alone on [place] near [place], neighbor does snow [employer] and she does the yard with her large rider. Has 2 dogs ( lab, pitbull) indoor and outdoor cats. 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 Is going through a divorce and is trying to down size her belongs in her home of 30 yrs. 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 Ortho Subjective Subjective Subjective Pt's feeling good with the level of support she gets from using newer velcro CMC/MP thermoform brace on at work. No splint at home, light home chore tasks. No longer has scar hypersensitivity, wears glove over at night. Now able to do all of her work task with good control and mild adaptations to avoid L thumb pain. Pain Assessment Pain Pain Yes Pain Comments 2/10 momentary pain in L thumb during heaviness home care attendant. OT OP Daily Ortho Note/Assessment Therapeutic Activity Therapeutic Activity Minutes (minutes) 2 Therapeutic Activity Comments Reviewed HEP Manual Therapy Manual Therapy Minutes (minutes) 18 Manual Therapy Comments OTR applies gentle LLPS in WR EX, WR FL and supination planes, MP IP, flexion, radial deviation, gentle vera incision massage, gentle pin and stretch over the raised forearm incision during gentle home care attendant ad EX. Scar mobilization techniques with dycem applied using small circular motions. and skin rolling/pinch and gentle twisting technique. Issued dycem for use w home technique. Ultrasound Ultrasound Minutes (minutes) 10 Ultrasound Location & Joint Position L CMC base Ultrasound Frequency & Mode 3 MHz Continuous Intensity (w/cm2) 1.5 Ultrasound Comments as needed to support reduction of edema for tissue healing, improved circulation and tissue mobility. Splinting Splinting Comments 06/04/24-- Pt to continue bracing for the next week, as her wrist strength is still needing more improvement. 05/01/24--Flared, rolled back dorsal MCP margin. 04/25/24--Pt was provided with a custom fabricated thumb spica orthosis for protected healing of her LUE CMC arthroplasty. Pt was provided with training and practice in donning and doffing orthosis as well as a compression glove to wear underneath. Pt was instructed to wear splint at all times when active, off for shower and HEP, can remove if she is resting but should wear to bed at night. Total Occupational Therapy Time Occupational Therapy Minutes 30 Home Program Home Program Home Program Revised,Compliant Home Program Specifics 05/30/24-- WR planes with 1# WR EX/FL, Hammer turns and R/UD mid shaft. 05/11/24-- Hand based splint for at work, CMC thermoform. Putty/soft with gentle 30% pressure with home care attendant/gomez and 2pt pinch. 05/08/24-- WR EX, FL stretches. Wall push ups. 05/04/24-- gentle 30% pressure with fingers only gripping on soft putty in sup/pron/neutral positions. 05/01/24--scar massage, scar gel, contrast baths and table slides. 04/11/24 Provided review of initial exs that were provided at first session, provided additional training and practice in HEP for elevated, non-resisted muscle pumps for edema reduction, finger / thumb ext with abd/add, opposition, IP flex/ext, and radial abd/add. Following demo , pt is able to complete all exs with minimal vc and encouragement. Pt was provided with written instructions for use at home. She was instructed to keep all movements gentle and non- painful. Also initiated light scar tissue mobilization. IE: Wr EX and FL stretches, tendon gliding, self massage of edema, elevation and compression glove use. Range of Motion and Strength Wrist Range of Motion and Strength Wrist Range of Motion and Strength WR EX to 60 of 70 and WF to 55 of 80. Supination and pronation WNL EDEMA-- Distended skin, pitting edema pink flushed with neutral healing warmth, no red streaking. Wrist crease is 16.8 cm L and 16.2 R. TH p1 is 6.7 cm L and 6.3 R. Hand/Finger/Thumb Range of Motion and Strength Hand/Finger/Thumb Range of Motion and Pt makes 80% of full fist. Strength AAROM composite digit flexion L IF/MF/RF/SF is 2.2 / 2.0 / 1.8 / .7 cm ( where .5-1 cm is WNL) Goniometric Comments Goniometric Comments Goniometric Comments 05/01/24-- pt nearly makes rolled fist. Hand Pinch/Bakery Manager Strength Hand Pinch/Bakery Manager Strength Hand Pinch/Bakery Manager Strength Left Hand,Right Hand Left Hand Bakery Manager Strength Position 1 in Elbow 0 Flexion (lbs) Right Hand Bakery Manager Strength Position 1 in Elbow 58 Flexion (lbs) Lateral Pinch Strength (lbs) 15 Three Point Pinch (lbs) 14 Comments Comments 07/30/24-- Pt's home care attendant improved to 50 B (2/10 momentary pain with full effort gripping). Gomez pinch is 10# L (15# R) and 3 pt is 10.5# L (14# R). MMT 5/5 WR EX, FL, RD, 5/5 UD. 06/04/24-- Pt's home care attendant improved to 40 B ( R lat epicondyle , new tenderness, has had cortisone in the past x 2 episodes). Gomez pinch is 9# L (15# R)and 3 pt is 10.5# L ( 14# R). MMT 4-/5 WR EX, FL, RD , 5/ UD. 05/08/24- WE to 60 of 70, WR FL to 75 of 80, RD to 10 of 20 . UD 45. 05/04/24-- L Bakery Manager 8#, 2# gomez pinch; 2/10 tender for teaching purposes only. OT Problems Problems Problems Decreased Strength,Decreased Range of Motion,Pain,Sensory Sensitivity,Lifting,Gripping, Pinching Other Problems Opening Containers,Dressing, Fasteners Patient Potential Excellent Assessment Assessment Assessment Pt pleased with her results with L CMC arthroplasty and feels good about her return to work/heavy tasks. Plans to do the R side in March 2025. Occupational Therapy Treatment Plan - OP Potential Rehabilitation Potential Excellent Set Goals Goals Set with Patient Yes Goals Goals After 12 visits of OT, Yesi craven demonstrates:? 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 07/30/24-- GOAL MET 2) I HEP for stretching, gradual strengthening and self mgmt strategies. 07/30/24-- GOAL MET 3) improved L home care attendant strength to 40# and pinch to 12# with L thumb pain < 1/10. 07/30/24-- GOAL MET 4)??Pt to be fit with functional bracing (for CMC, wrist, may need 1-3 versions o support her activity levels and need for support during heavy equipment use) and use adaptive strategies to protect joint integrity to support less pain with ADL. 06/04/24-- Using a velcro thermoform CMC to MP hand based support while at work. Off for home tasks, can sleep without it if she doesn't clench hands while sleeping. Treatment Plan Treatment Plan Evaluation,Edema Control,Joint Mobilization,Manual Therapy, Ultrasound,Therapeutic Exercise,Self Care/Home Management,Education Expected Frequency 1-2x Week Expected Duration 8-10 Weeks Occupational Therapy Billing Units Treatment Minutes Timed Treatment Minutes 30 Total Treatment Minutes 30 Billing Units Manual Therapy 1 Ultrasound 1 Ortho Billing Units Wrist/Hand/Finger Orthosis 0 Certification Statement Certification Statement I Certify That: Therapy Services Provided, Therapy Plan Established, Therapy Plan Reviewed
== END 2024-07-31 07:31 | disposition home or self-care (01) ==
PROVIDERS: PCP Family Medicine; Visit Provider Orthopaedic Surgery
DX: Z48.89 Encounter for other specified surgical aftercare (principal); Z51.89 Encounter for other specified aftercare
CPT/HCPCS: 97035; 97110; 97112; 97140; 97165; 97530; L3806; X5282

== ENCOUNTER 2024-12-13 08:36 | Outpatient (CLI) | payer BC, SELFPAY ==
--- NOTE | 2024-12-13 09:15 | CRLHL7_ITS ---
For Patients: As a result of the Century Cures Act, medical imaging exams and procedure reports are released immediately into your electronic medical record. You may view this report before your referring provider. If you have questions, please contact your health care provider. INDICATION: Cervical myelopathy. COMPARISON: None. TECHNIQUE: Sagittal T1, T2, and STIR sequences. Axial T2/gradient sequences. Findings : Degenerative anterolisthesis of C4 on C5 measures approximately 3 mm. No fractures. No suspicious osseous lesions. Normal cord signal. No intradural mass or lesion. C1-2: No spinal canal narrowing. C2-3: No spinal canal neural foraminal narrowing. C3-4: Disk degeneration posted disc bulge. No narrowing of spinal canal. Mild narrowing of the right neural foramen. No narrowing of left neural foramen. C4-5: Grade 1 anterolisthesis. Disc degeneration unroofed posterior disc bulge. Combined with buckling of ligamentum flavum, there is moderate severe narrowing of spinal canal. Moderate severe narrowing of bilateral foramina potential impingement of the C5 nerve roots. C5-6: Disc generation broad-based disc osteophyte complex. Mild narrowing of spinal canal. Mild narrowing of the left neural foramen. No narrowing of the right neural foramen. C6-7: Disc generation broad-based disc osteophyte complex. Mild narrowing of spinal canal. Moderate narrowing of bilateral foramina. C7-T1: No spinal canal or neural foraminal narrowing. IMPRESSION: 1. Degenerative anterolisthesis of C4 on C5. Otherwise, normal alignment. No fractures 2. Normal cord signal. 3. At C3-4, mild narrowing of the right neural foramina 4. At C4-5, moderate to severe narrowing of the spinal canal and bilateral neural foramina. Potential impingement of the C5 nerve roots. 5. At C5-6, mild narrowing of the spinal canal and left neural foramen 6. At C6-7, moderate narrowing of the bilateral neural foramina Dictated by Juan A Monroe MD @ 12/13/2024 12:38:40 PM (Electronically Signed)
== END 2024-12-13 08:37 | disposition home or self-care (01) ==
LOC: MRI 08:37
PROVIDERS: PCP Family Medicine; Visit Provider Physician Assistant
DX: G95.89 Other specified diseases of spinal cord (principal); M50.21 Other cervical disc displacement, high cervical region; M50.221 Other cervical disc displacement at C4-C5 level; M50.222 Other cervical disc displacement at C5-C6 level; M50.223 Other cervical disc displacement at C6-C7 level; M79.604 Pain in right leg; M79.605 Pain in left leg; M79.671 Pain in right foot; M79.672 Pain in left foot
CPT/HCPCS: 72141

== ENCOUNTER 2025-03-12 10:30 | Outpatient (RCR) | payer BC, SELFPAY | END 2025-03-12 11:14 | disposition home or self-care (01) | PROVIDERS: PCP Family Medicine; Visit Provider Physician Assistant | DX: G56.20 Lesion of ulnar nerve, unspecified upper limb (principal); Z51.89 Encounter for other specified aftercare | CPT/HCPCS: 97035; 97140; 97165; 97530; 97535 ==